=== PATIENT | male | born 1975 | race Caucasian/White ===

== ENCOUNTER 2016-05-10 09:54 | Emergency (ER) | payer OTHER ==
[~2016-05-10] VITALS: Wt 75.0 kg
[~2016-05-10 09:54] MED LIST: HYDR-762 PO; IBUP-1542 PO; LEVE100018 PO; LEVE10006 PO; LEVE500T34 PO
[2016-05-10] MEDS ORDERED: LEVE500S9 PO (10:17)
--- NOTE | 2016-05-10 10:52 | ERD ---
ER Documentation Chief Complaint Date/Time DATE: 05/10/16 TIME: 10:49 Chief Complaint MED REFILL FOR KEPPRA HPI This is a 40-year-old male that presents to the ER requesting a refill for his Keppra. He states that he developed seizure disorder, he does not know why he has been getting seizures. Patient has been getting extensive testing however they have not secured a diagnosis. Patient's last seizure was 8-9 months ago. Patient states that his medication controlled his seizures well. He denies any fevers or chills. He denies any loss of consciousness. He denies any chest pain or shortness of breath. Patient has an appointment with his doctor on June 07, 2016, for follow up regarding his seizures. ROS 12 point review of systems was done, all negative except per HPI. Medications Home Meds Active Scripts Levetiracetam* (Keppra*) 500 Mg/5 Ml Solution, 500 MG PO BID for 30 Days, BOTTLE 1 Refill Prov:GREGORIA RITCHIE 05/10/16 Levetiracetam* (Keppra XR*) 500 Mg Tab.sr.24h, 500 MG PO BID for 30 Days, TAB Prov:GREGORIA RITCHIE 04/12/16 Levetiracetam* (Levetiracetam*) 1,000 Mg Tablet, 1000 MG PO BID, #60 TAB Prov:URSULA LIN DO 01/02/16 Levetiracetam* (Keppra*) 1,000 Mg Tablet, 1000 MG PO BID for 30 Days, TAB Prov:DANIEL METZ MD 10/24/15 Ibuprofen* (Motrin*) 600 Mg Tab, 600 MG PO Q6, #10 TAB Prov:DANIEL METZ MD 10/24/15 Hydrocodone Bit-Acetaminophen* ([place]*) 10-325 Mg Tablet, 1 TAB PO Q6 Y for PAIN , #10 TAB Prov:DANIEL METZ MD 10/24/15 Allergies Allergies: Coded Allergies: No Known Allergy (Unverified , 10/24/15) PMhx/Soc Medical and Surgical Hx: pt denies Surgical Hx History of Surgery: No Anesthesia Reaction: No Hx Neurological Disorder: Yes (SEIZURE) Hx Respiratory Disorders: No Hx Cardiac Disorders: No Hx Psychiatric Problems: No Hx Miscellaneous Medical Probl: No Hx Alcohol Use: Yes (socially) Hx Substance Use: Yes (MARIJUANA) Hx Tobacco Use: No Smoking Status: Never smoker Physical Exam Vitals Vital Signs Date Time Temp Pulse Resp B/P Pulse Ox O2 Delivery O2 Flow Rate FiO2 05/10/16 09:58 98.1 95 17 143/98 99 Physical Exam GENERAL: The patient is well developed and appropriate for usual state of health , in no apparent distress. HEENT: Atraumatic. no tongue bruising CHEST: Clear to auscultation bilaterally. There are no rales, wheezes or rhonchi. HEART: Regular rate and rhythm. No murmurs, clicks, rubs or gallops. EXTREMITIES: Full range of motion. Grossly neurovascularly intact. NEURO: Alert and oriented. Cranial nerves II through XII are intact. Motor strength in all 4 extremities with 5/5 strength. Sensation grossly intact. Normal speech and gait. SKIN: The skin is warm and dry. Procedures/MDM This is a 40-year-old male presents to the ER for medication refill. At this time patient is stable his vital signs are normal. Patient will be sent home with this Breath. He is to follow-up with his primary care doctor within 1-2 days return to ER sooner if symptoms worsen. My medical decision making was shared with the patient he understands and agrees with plan. Departure Diagnosis: Primary Impression: Encounter for medication refill Condition: Stable Patient Instructions: Taking Medicine Safely Additional Instructions: Call your primary care doctor TOMORROW for an appointment during the next 1-2 days.See the doctor sooner or return here if your condition worsens before your appointment time. GREGORIA RITCHIE May 10, 2016 10:52
== END 2016-05-10 11:15 | disposition home or self-care (01) ==
LOC: FTE 09:54
DX: Z76.0 Encounter for issue of repeat prescription (principal)
CPT/HCPCS: 99281

== ENCOUNTER 2016-06-05 11:46 | Emergency (ER) | payer OTHER ==
[~2016-06-05] VITALS: Wt 72.5 kg
[~2016-06-05 11:46] MED LIST changes: +LEVE500S9 PO
[2016-06-05] MEDS ORDERED: LEVE-5 PO (12:31)
--- NOTE | 2016-06-05 12:34 | ERD ---
ER Documentation Chief Complaint Date/Time DATE: 06/05/16 TIME: 12:32 Chief Complaint need medication refill for seizure meds. no seizure. no pain HPI 41-year-old male with history of seizure disorder comes to the emergency department for medication refill for Keppra which he takes 500 mg twice daily. Patient states he has had a seizure disorder for several years now his last seizure was over a year ago. His primary care physician is able to see him in 2 days which is on Tuesday, this is a new PCP and he understands that he needs to see a neurologist. He denies coronary, recent seizures, head injury. He has had a CT scan had previously not has been unremarkable. ROS All systems reviewed and are negative except as per history of present illness. Medications Home Meds Active Scripts Levetiracetam* (Keppra*) 500 Mg Tablet, 500 MG PO BID, #60 TAB Prov:MARTHA LOVELACE PA-C 06/05/16 Levetiracetam* (Keppra*) 500 Mg/5 Ml Solution, 500 MG PO BID for 30 Days, BOTTLE 1 Refill Prov:GREGORIA RITCHIE 05/10/16 Levetiracetam* (Keppra XR*) 500 Mg Tab.sr.24h, 500 MG PO BID for 30 Days, TAB Prov:GREGORIA RITCHIE 04/12/16 Levetiracetam* (Levetiracetam*) 1,000 Mg Tablet, 1000 MG PO BID, #60 TAB Prov:URSULA LIN DO 01/02/16 Levetiracetam* (Keppra*) 1,000 Mg Tablet, 1000 MG PO BID for 30 Days, TAB Prov:DANIEL METZ MD 10/24/15 Ibuprofen* (Motrin*) 600 Mg Tab, 600 MG PO Q6, #10 TAB Prov:DANIEL METZ MD 10/24/15 Hydrocodone Bit-Acetaminophen* ([place]*) 10-325 Mg Tablet, 1 TAB PO Q6 Y for PAIN , #10 TAB Prov:DANIEL METZ MD 10/24/15 Allergies Allergies: Coded Allergies: No Known Allergy (Unverified , 10/24/15) PMhx/Soc History of Surgery: No Anesthesia Reaction: No Hx Neurological Disorder: Yes (SEIZURE) Hx Respiratory Disorders: No Hx Cardiac Disorders: No Hx Psychiatric Problems: No Hx Miscellaneous Medical Probl: No Hx Alcohol Use: Yes (socially) Hx Substance Use: Yes (MARIJUANA) Hx Tobacco Use: No Physical Exam Vitals Vital Signs Date Time Temp Pulse Resp B/P Pulse Ox O2 Delivery O2 Flow Rate FiO2 06/05/16 11:50 98.8 102 22 132/87 97 Physical Exam General: Well-developed, well-nourished. The patient appears in no acute distress. HEENT: Head is normocephalic, atraumatic. No scleral icterus. Pupils are equal , round, and reactive. Oral mucous membranes are moist. No pharyngeal erythema. Neck: Supple. Nontender. Lungs: Clear to auscultation. Normal air movement. Heart: Regular rate and rhythm. S1 and S2 are normal. No murmurs, gallops, or rubs. Abdomen: Soft, nontender, nondistended. Bowel sounds are normoactive. Extremities: No clubbing or cyanosis. Normal pulses. Moving extremities x 4. No weakness. Neurologic: Alert and oriented 3. No focal deficits. Skin: Normal turgor. No rash or lesions. Procedures/MDM 40-year-old male will be given a medication refill for Keppra, with history of seizure disorder. No signs of altered mental status or history of recent seizures. He understands he needs to get a referral to see a neurologist. He understands that he needs to see one within the next couple of weeks. Departure Diagnosis: Primary Impression: Encounter for medication refill Additional Impression: Seizure Condition: Good Patient Instructions: Seizures and Epilepsy Referrals: ANNA MARIE VOGT MD Additional Instructions: NEUROLOGY SPECIALIST: YOU HAVE A MEDICAL CONDITION WHICH REQUIRES YOU TO SEE A SPECIALIST WITHIN THE NEXT 2 weeks. PLEASE FOLLOW UP WITH YOUR PRIMARY PHYSICIAN FOR REFFERAL.IF YOU DO NOT HAVE A PRIMARY CARE PHYSICIAN AND/OR YOU CAN NOT AFFORD TO SEE A PHYSICIAN THE FOLLOWING RESOURCES HAVE BEEN SUPPLIED TO YOU. IT IS YOUR RESPONSIBILITY TO BE SEEN BY THE SPECIALIST MARTHA LOVELACE PA-C Jun 05, 2016 12:34
== END 2016-06-05 12:40 | disposition home or self-care (01) ==
LOC: FTE 11:46
DX: Z76.0 Encounter for issue of repeat prescription (principal); G40.909 Epilepsy, unspecified, not intractable, without status epilepticus
CPT/HCPCS: 99281

== ENCOUNTER 2016-07-06 09:30 | Emergency (ER) | payer OTHER ==
[~2016-07-06] VITALS: Ht 177.8 cm; Wt 74.5 kg
[~2016-07-06 09:30] MED LIST changes: +LEVE-5 PO
[2016-07-06 09:36] VITALS: Ht 177.8 cm; Wt 74.5 kg
[2016-07-06] MEDS ORDERED: LEVE500S9 PO (09:54)
--- NOTE | 2016-07-06 13:06 | ERD ---
ER Documentation Chief Complaint Date/Time DATE: 07/06/16 TIME: 13:05 Chief Complaint keppra refill (keppra 500mg PO daily) HPI Patient is a 41-year-old male with seizures who presents for a prescription. The patient said that he needs a prescription for his Keppra 500 mg twice a day. The patient has had previous visits to the ER for similar type complaints. He has no complaints other than he feels urinary hesitancy at this time. Upon review of old medical records this is the patient's sixth visit to the ER since 2016. He does not currently have a primary doctor. ROS All systems reviewed and are negative except as per history of present illness. Medications Home Meds Active Scripts Levetiracetam* (Keppra*) 500 Mg/5 Ml Solution, 500 MG PO BID, #60 BOTTLE Prov:IMANI DE LEON MD 07/06/16 Levetiracetam* (Keppra*) 500 Mg Tablet, 500 MG PO BID, #60 TAB Prov:MRATHA LOVELACE PA-C 06/05/16 Levetiracetam* (Keppra*) 500 Mg/5 Ml Solution, 500 MG PO BID for 30 Days, BOTTLE 1 Refill Prov:GREGORIA RITCHIE 05/10/16 Levetiracetam* (Keppra XR*) 500 Mg Tab.sr.24h, 500 MG PO BID for 30 Days, TAB Prov:GREGORIA RITCHIE 04/12/16 Levetiracetam* (Levetiracetam*) 1,000 Mg Tablet, 1000 MG PO BID, #60 TAB Prov:URSULA LIN DO 01/02/16 Levetiracetam* (Keppra*) 1,000 Mg Tablet, 1000 MG PO BID for 30 Days, TAB Prov:DANIEL METZ MD 10/24/15 Ibuprofen* (Motrin*) 600 Mg Tab, 600 MG PO Q6, #10 TAB Prov:DANIEL METZ MD 10/24/15 Hydrocodone Bit-Acetaminophen* ([place]*) 10-325 Mg Tablet, 1 TAB PO Q6 Y for PAIN , #10 TAB Prov:DANIEL METZ MD 10/24/15 Allergies Allergies: Coded Allergies: No Known Allergy (Unverified , 10/24/15) PMhx/Soc History of Surgery: No Anesthesia Reaction: No Hx Neurological Disorder: Yes (SEIZURE) Hx Respiratory Disorders: No Hx Cardiac Disorders: No Hx Psychiatric Problems: No Hx Miscellaneous Medical Probl: No Hx Alcohol Use: Yes (socially) Hx Substance Use: Yes (MARIJUANA) Hx Tobacco Use: No FmHx Family History: diabetes Physical Exam Vitals Vital Signs Date Time Temp Pulse Resp B/P Pulse Ox O2 Delivery O2 Flow Rate FiO2 07/06/16 09:36 97.1 113 18 155/94 95 Physical Exam Const: No acute distress Head: Atraumatic Eyes: Normal Conjunctiva ENT: Normal External Ears, Nose and Mouth. Neck: Full range of motion..~ No meningismus. Resp: Clear to auscultation bilaterally Cardio: Regular rate and rhythm, no murmurs Abd: Soft, non tender, non distended. Normal bowel sounds Skin: No petechiae or rashes Back: No midline or flank tenderness Ext: No cyanosis, or edema Neur: Awake and alert Psych: Normal Mood and Affect Procedures/MDM Patient is a 41-year-old male with seizures who presents for a refill of seizure medications. I will give him a prescription for Keppra 500 mg p.o. twice daily. The patient will need to follow-up with a primary doctor and I will give him information for the local clinics. He can return for any worsening symptoms. I believe outpatient management is appropriate. Departure Diagnosis: Primary Impression: Encounter for medication refill Condition: Fair Patient Instructions: Seizure, Recurrent [Adult] Referrals: [facility] YOU HAVE RECEIVED A MEDICAL SCREENING EXAM AND THE RESULTS INDICATE THAT YOU DO NOT HAVE A CONDITION THAT REQUIRES URGENT TREATMENT IN THE EMERGENCY DEPARTMENT. FURTHER EVALUATION AND TREATMENT OF YOUR CONDITION CAN WAIT UNTIL YOU ARE SEEN IN YOUR DOCTORS OFFICE WITHIN THE NEXT 1-2 DAYS. IT IS YOUR RESPONSIBILITY TO MAKE AN APPOINTMENT FOR FOLOW-UP CARE. IF YOU HAVE A PRIMARY DOCTOR --you should call your primary doctor and schedule an appointment IF YOU DO NOT HAVE A PRIMARY DOCTOR YOU CAN CALL OUR PHYSICIAN REFERRAL HOTLINE AT IF YOU CAN NOT AFFORD TO SEE A PHYSICIAN YOU CAN CHOSE FROM THE FOLLOWING [facility] [address] [facility]. [facility] [address] [facility]. [facility] [address] [facility]. [facility] [address] [facility] [address] [facility] [facility] [address] Additional Instructions: Call your primary care doctor TOMORROW for an appointment during the next 1-2 days.See the doctor sooner or return here if your condition worsens before your appointment time. IMANI DE LEON MD Jul 06, 2016 13:06
== END 2016-07-06 10:05 | disposition home or self-care (01) ==
LOC: E/R 09:30
DX: Z76.0 Encounter for issue of repeat prescription (principal)
CPT/HCPCS: 99281

== ENCOUNTER 2016-08-09 08:32 | Emergency (ER) | payer OTHER ==
[~2016-08-09] VITALS: Ht 175.3 cm; Wt 78.9 kg
[~2016-08-09 08:32] MED LIST changes: +LEVE500S8 PO; -LEVE500S9 PO
[2016-08-09 08:35] VITALS: Ht 175.3 cm; Wt 78.9 kg
[2016-08-09] MEDS ORDERED: LEVE500T8 PO (09:04)
--- NOTE | 2016-08-09 11:55 | ERD ---
ER Documentation Chief Complaint Date/Time DATE: 08/09/16 TIME: 11:53 Chief Complaint REFILL OF SEIZURE MEDS HPI This patient is a 41-year-old male with history of seizure disorder presenting to the emergency department for refill of his seizure medication. The patient takes Levetiracetam 500 mg p.o. twice daily. I will prescribe the medication exactly as prescribed as a previous provider, and how it was originally prescribed. The patient states he just ran out of his medication this morning and he has not missed a dose. The patient denies any recent seizures. The patient's last seizure was 2 years ago before he started taking his medication. The patient denies any side effects from the medication. The patient currently denies shortness of breath, chest pain, dizziness, headache, or other symptoms. ROS All systems reviewed and are negative except as per history of present illness. Medications Home Meds Active Scripts Levetiracetam* (Levetiracetam*) 500 Mg Tablet, 500 MG PO BID, #60 TAB Prov:JAMARI HUTTON PA-C 08/09/16 Levetiracetam* (Keppra*) 500 Mg/5 Ml Solution, 500 MG PO BID, #60 BOTTLE Prov:IMANI DE LEON MD 07/06/16 Levetiracetam* (Keppra*) 500 Mg Tablet, 500 MG PO BID, #60 TAB Prov:MARTHA LOVELACE PA-C 06/05/16 Levetiracetam* (Keppra*) 500 Mg/5 Ml Solution, 500 MG PO BID for 30 Days, BOTTLE 1 Refill Prov:GREGORIA RITCHIE 05/10/16 Levetiracetam* (Keppra XR*) 500 Mg Tab.sr.24h, 500 MG PO BID for 30 Days, TAB Prov:GREGORIA RITCHIE 04/12/16 Levetiracetam* (Levetiracetam*) 1,000 Mg Tablet, 1000 MG PO BID, #60 TAB Prov:URSULA LIN DO 01/02/16 Levetiracetam* (Keppra*) 1,000 Mg Tablet, 1000 MG PO BID for 30 Days, TAB Prov:DANIEL METZ MD 10/24/15 Ibuprofen* (Motrin*) 600 Mg Tab, 600 MG PO Q6, #10 TAB Prov:DANIEL METZ MD 10/24/15 Hydrocodone Bit-Acetaminophen* ([place]*) 10-325 Mg Tablet, 1 TAB PO Q6 Y for PAIN , #10 TAB Prov:DANIEL METZ MD 10/24/15 Allergies Allergies: Coded Allergies: No Known Allergy (Unverified , 08/09/16) PMhx/Soc Medical and Surgical Hx: pt denies Medical Hx, pt denies Surgical Hx History of Surgery: No Anesthesia Reaction: No Hx Neurological Disorder: Yes (SEIZURE) Hx Respiratory Disorders: No Hx Cardiac Disorders: No Hx Psychiatric Problems: No Hx Miscellaneous Medical Probl: No Hx Alcohol Use: Yes (socially) Hx Substance Use: Yes (MARIJUANA) Hx Tobacco Use: No Smoking Status: Never smoker FmHx Noncontributory for chief complaint Physical Exam Vitals Vital Signs Date Time Temp Pulse Resp B/P Pulse Ox O2 Delivery O2 Flow Rate FiO2 08/09/16 08:35 98.1 99 18 160/90 99 Physical Exam Const: The patient is resting comfortably in no acute distress. Head: Atraumatic Eyes: Normal Conjunctiva ENT: Normal External Ears, Nose and Mouth. Neck: Full range of motion..~ No meningismus. Resp: Clear to auscultation bilaterally Cardio: Regular rate and rhythm, no murmurs Abd: Soft, non tender, non distended. Normal bowel sounds Skin: No petechiae or rashes Back: No midline or flank tenderness Ext: No cyanosis, or edema Neur: Awake and alert Psych: Normal Mood and Affect Procedures/MDM 41-year-old male presents secondary to complaints of needing his seizure medication refill. On physical examination the patient has no neurological deficits. The patient states his last seizure was over 2 years ago before he started taking seizure medication. The patient denies any negative side effects from the medication. I will prescribe the medication exactly as prescribed by the previous provider. The patient was advised to follow-up with a primary care physician. The patient was given strict ER return precautions in case of seizure or other concerning symptoms occur. Departure Diagnosis: Primary Impression: Encounter for medication refill Condition: Fair Patient Instructions: Taking Medicine Safely Referrals: COMMUNITY CLINICS YOU HAVE RECEIVED A MEDICAL SCREENING EXAM AND THE RESULTS INDICATE THAT YOU DO NOT HAVE A CONDITION THAT REQUIRES URGENT TREATMENT IN THE EMERGENCY DEPARTMENT. FURTHER EVALUATION AND TREATMENT OF YOUR CONDITION CAN WAIT UNTIL YOU ARE SEEN IN YOUR DOCTORS OFFICE WITHIN THE NEXT 1-2 DAYS. IT IS YOUR RESPONSIBILITY TO MAKE AN APPOINTMENT FOR FOLOW-UP CARE. IF YOU HAVE A PRIMARY DOCTOR --you should call your primary doctor and schedule an appointment IF YOU DO NOT HAVE A PRIMARY DOCTOR YOU CAN CALL OUR PHYSICIAN REFERRAL HOTLINE AT IF YOU CAN NOT AFFORD TO SEE A PHYSICIAN YOU CAN CHOSE FROM THE FOLLOWING [facility] [address] [facility] [address] [facility] [address] [facility] [address] [facility] [address] [facility]. [facility]. [address] Additional Instructions: Please follow-up with a primary care physician as soon as possible. Return to the emergency department immediately should you have any new or worsening symptoms, uncontrolled fevers, or other unexplained symptoms. Take all medications as directed. JAMARI HUTTON PA-C Aug 09, 2016 11:55
== END 2016-08-09 09:20 | disposition home or self-care (01) ==
LOC: FTE 08:32
DX: Z76.0 Encounter for issue of repeat prescription (principal)
CPT/HCPCS: 99281

== ENCOUNTER 2016-09-11 06:42 | Emergency (ER) | payer OTHER ==
[~2016-09-11] VITALS: Ht 175.3 cm; Wt 70.0 kg
[~2016-09-11 06:42] MED LIST changes: -LEVE500S8 PO; +LEVE500S9 PO; +LEVE500T8 PO
[2016-09-11 06:43] VITALS: Ht 175.3 cm; Wt 70.0 kg
[2016-09-11] MEDS ORDERED: LEVE-5 PO (06:47)
--- NOTE | 2016-09-11 07:58 | ERD ---
ER Documentation Chief Complaint Date/Time DATE: 09/11/16 TIME: 07:54 Chief Complaint medication refill ( levetiracetam) HPI This is a 41-year-old male with a history of seizure disorder presenting to the emergency department asking for a minute goal refill for his Keppra. Patient states that he is trying to get an appointment to see a neurologist however they rescheduled him. Patient denies any seizures, he denies any chest pain shortness of breath. He has no other complaints ROS All systems reviewed and are negative except as per history of present illness. Medications Home Meds Active Scripts Levetiracetam* (Keppra*) 500 Mg Tablet, 500 MG PO BID, #60 TAB Prov:JUANJO CARR PA-C 09/11/16 Levetiracetam* (Levetiracetam*) 500 Mg Tablet, 500 MG PO BID, #60 TAB Prov:JAMARI HUTTON PA-C 08/09/16 Levetiracetam* (Keppra*) 500 Mg/5 Ml Solution, 500 MG PO BID, #60 BOTTLE Prov:IMANI DE LEON MD 07/06/16 Levetiracetam* (Keppra*) 500 Mg Tablet, 500 MG PO BID, #60 TAB Prov:MARTHA LOVELACE PA-C 06/05/16 Levetiracetam* (Keppra*) 500 Mg/5 Ml Solution, 500 MG PO BID for 30 Days, BOTTLE 1 Refill Prov:GREGORIA RITCHIE 05/10/16 Levetiracetam* (Keppra XR*) 500 Mg Tab.sr.24h, 500 MG PO BID for 30 Days, TAB Prov:GREGORIA RITCHIE 04/12/16 Levetiracetam* (Levetiracetam*) 1,000 Mg Tablet, 1000 MG PO BID, #60 TAB Prov:URSULA LIN DO 01/02/16 Levetiracetam* (Keppra*) 1,000 Mg Tablet, 1000 MG PO BID for 30 Days, TAB Prov:DANIEL METZ MD 10/24/15 Ibuprofen* (Motrin*) 600 Mg Tab, 600 MG PO Q6, #10 TAB Prov:DANIEL METZ MD 10/24/15 Hydrocodone Bit-Acetaminophen* ([place]*) 10-325 Mg Tablet, 1 TAB PO Q6 Y for PAIN , #10 TAB Prov:DANIEL METZ MD 10/24/15 Allergies Allergies: Coded Allergies: No Known Allergy (Unverified , 08/09/16) PMhx/Soc History of Surgery: No Anesthesia Reaction: No Hx Neurological Disorder: Yes (SEIZURE) Hx Respiratory Disorders: No Hx Cardiac Disorders: No Hx Psychiatric Problems: No Hx Miscellaneous Medical Probl: No Hx Alcohol Use: Yes (socially) Hx Substance Use: Yes (MARIJUANA) Hx Tobacco Use: No Smoking Status: Current every day smoker Physical Exam Vitals Vital Signs Date Time Temp Pulse Resp B/P Pulse Ox O2 Delivery O2 Flow Rate FiO2 09/11/16 06:43 97.8 99 16 142/86 94 Physical Exam Const: [] Head: Atraumatic Eyes: Normal Conjunctiva ENT: Normal External Ears, Nose and Mouth. Neck: Full range of motion..~ No meningismus. Resp: Clear to auscultation bilaterally Cardio: Regular rate and rhythm, no murmurs Abd: Soft, non tender, non distended. Normal bowel sounds Skin: No petechiae or rashes Back: No midline or flank tenderness Ext: No cyanosis, or edema Neur: Awake and alert Psych: Normal Mood and Affect Procedures/MDM This is a 41-year-old male presenting to the emergency department with a history of seizure disorder asking for a refill on his Keppra, patient is trying to get an appointment to see his neurologist however they rescheduled him. Patient denies any seizure activity. He appears well he has stable vital signs. I have refilled a prescription for Keppra 500 mg twice a day for the next 30 days, I discussed with him that he will need to see a neurologist within the next couple days to get a follow-up. Discussed that we will not be able to continue to refill his medications in the future. Patient understands and agrees with this plan. He stable for discharge for home Departure Diagnosis: Primary Impression: Seizure Additional Impression: Encounter for medication refill Condition: Stable Patient Instructions: Taking Medicine Safely Referrals: NO PRIMARY,CARE PHYSICIAN (PCP) YOUR DOCTOR Additional Instructions: FOLLOW UP WITH YOUR PRIMARY CARE PHYSICIAN TOMORROW.Return to this facility if you are not improving as expected. Return to this facility if you are not improving as expected. Take all medicines as directed. JUANJO CARR PA-C September 11, 2016 07:58
== END 2016-09-11 07:06 | disposition home or self-care (01) ==
LOC: FTE 06:42
DX: G40.909 Epilepsy, unspecified, not intractable, without status epilepticus (principal); F17.210 Nicotine dependence, cigarettes, uncomplicated
CPT/HCPCS: 99281

== ENCOUNTER 2016-10-11 08:09 | Emergency (ER) | payer OTHER ==
[~2016-10-11] VITALS: Ht 175.3 cm; Wt 69.0 kg
[2016-10-11 08:13] VITALS: Ht 175.3 cm; Wt 69.0 kg
[2016-10-11] MEDS ORDERED: LEVE500T8 PO (09:23)
--- NOTE | 2016-10-11 10:32 | ERD ---
ER Documentation Chief Complaint Date/Time DATE: 10/11/16 TIME: 10:27 Chief Complaint REQUESTING MED REFILL FOR SEIZURE MEDS - NO OTHER COMPLAINTS HPI 41-year-old male patient with a past medical history of seizures presents to the ED requesting for a medication refill for Keppra. Patient reports that his last seizure was about 1 year ago. Reports that he is had difficulty following up with a family physician as well as a neurologist. Denies any chest pain, shortness of breath, seizures, dizziness, headache, eye pain, dyspnea on exertion, wheezing, fever, abdominal pain, nausea, vomiting. Reports that he takes Keppra 500 mg twice daily. States that he will be going to [place] and needs 1 month refill and won't be able to get a refill. ROS All systems reviewed and are negative except as per history of present illness. Medications Home Meds Active Scripts Levetiracetam* (Levetiracetam*) 500 Mg Tablet, 500 MG PO BID, #60 TAB Prov:JULIANNA RAMOSC 10/11/16 Levetiracetam* (Keppra*) 500 Mg Tablet, 500 MG PO BID, #60 TAB Prov:JUANJO CARRC 09/11/16 Levetiracetam* (Levetiracetam*) 500 Mg Tablet, 500 MG PO BID, #60 TAB Prov:JAMARI HUTTONC 08/09/16 Levetiracetam* (Keppra*) 500 Mg/5 Ml Solution, 500 MG PO BID, #60 BOTTLE Prov:IMANI DE LEON MD 07/06/16 Levetiracetam* (Keppra*) 500 Mg Tablet, 500 MG PO BID, #60 TAB Prov:MARTHA LOVELACEC 06/05/16 Levetiracetam* (Keppra*) 500 Mg/5 Ml Solution, 500 MG PO BID for 30 Days, BOTTLE 1 Refill Prov:GREGORIA RITCHIE 05/10/16 Levetiracetam* (Keppra XR*) 500 Mg Tab.sr.24h, 500 MG PO BID for 30 Days, TAB Prov:GREGORIA RITCHIE 04/12/16 Levetiracetam* (Levetiracetam*) 1,000 Mg Tablet, 1000 MG PO BID, #60 TAB Prov:URSULA LIN DO 01/02/16 Levetiracetam* (Keppra*) 1,000 Mg Tablet, 1000 MG PO BID for 30 Days, TAB Prov:DANIEL METZ MD 10/24/15 Ibuprofen* (Motrin*) 600 Mg Tab, 600 MG PO Q6, #10 TAB Prov:DANIEL METZ MD 10/24/15 Hydrocodone Bit-Acetaminophen* ([place]*) 10-325 Mg Tablet, 1 TAB PO Q6 Y for PAIN , #10 TAB Prov:DANIEL METZ MD 10/24/15 Allergies Allergies: Coded Allergies: No Known Allergy (Unverified , 08/09/16) PMhx/Soc Medical and Surgical Hx: pt denies Surgical Hx History of Surgery: No Anesthesia Reaction: No Hx Neurological Disorder: Yes (SEIZURE) Hx Respiratory Disorders: No Hx Cardiac Disorders: No Hx Psychiatric Problems: No Hx Miscellaneous Medical Probl: No Hx Alcohol Use: Yes (socially) Hx Substance Use: Yes (MARIJUANA) Hx Tobacco Use: No Smoking Status: Never smoker Physical Exam Vitals Vital Signs Date Time Temp Pulse Resp B/P Pulse Ox O2 Delivery O2 Flow Rate FiO2 10/11/16 08:13 98.3 104 16 155/99 95 Physical Exam Const: [id number], well-nourished. In no acute distress. Head: Atraumatic, normocephalic Eyes: Normal Conjunctiva without injection. No purulent discharge. PERRLA. EOMI ENT: Normal external ear. Ear canal without erythema. Tympanic membrane pearly burch without effusion or bulging. Nasal canal clear with normal turbinates. Moist oropharynx without tonsillar exudates. Non-erythematous pharynx. Uvula midline. No drooling. No trismus. Neck: No cervical midline tenderness. Full range of motion. No meningismus. No cervical lymphadenopathy. No JVD. Resp: Clear to auscultation bilaterally. No wheezing, rhonchi, rales, or crackles. No accessory muscle use. No retractions. Cardio: Regular rate and rhythm. No murmurs, rubs or gallops. Skin: Normal skin turgor. No petechiae or rashes Ext: No cyanosis, or edema. Distal pulses intact bilaterally. Neur: Awake and alert. Normal gait. Normal coordination. Cranial Nerves II- VII intact. Normal finger to nose. Muscle strength 5/5. Sensation intact. Psych: Normal Mood and Affect Procedures/MDM 41-year-old male patient with no significant past medical history presents to the ED for a medication refill for his seizure medications. Patient is afebrile and nontoxic-appearing. Patient's blood pressure was noted to be 155/ 99. Patient's blood pressure was elevated (>120/80) but appears stable without evidence of hypertension emergency or urgency. The patient was counseled about the risks of hypertension and urged to pursue outpatient monitoring and therapy within a week with their primary care physician. Patient is neurologically intact. I will refill patient's medication for Keppra but strictly instructed him to follow-up with a primary care physician for further evaluation and treatment to manage his seizure history. Patient reports no seizures within 1 year. Reports that the Keppra is working to avoid any seizures. Low suspicion for acute myocardial infarction, pneumothorax, pneumonia, cardiac tamponade, pulmonary embolism, pleural effusion, AAA, aortic dissection, Boerhaave's syndrome, cardiac dysrhythmias,meningitis, intracranial bleed, seizure, stroke, TIA or other emergent conditions. Discharge medications: Srinivasra Follow up with primary care physician in 1-2 days. Instructed patient to return to the ED sooner for any worsening symptoms. Patient's questions were answered. Patient understood and agreed with discharge plan. Patient discharged stable. Departure Diagnosis: Primary Impression: Encounter for medication refill Condition: Stable Patient Instructions: Taking Medicine Safely, First Aid: Seizures, Seizures and Epilepsy Referrals: [facility] YOU HAVE RECEIVED A MEDICAL SCREENING EXAM AND THE RESULTS INDICATE THAT YOU DO NOT HAVE A CONDITION THAT REQUIRES URGENT TREATMENT IN THE EMERGENCY DEPARTMENT. FURTHER EVALUATION AND TREATMENT OF YOUR CONDITION CAN WAIT UNTIL YOU ARE SEEN IN YOUR DOCTORS OFFICE WITHIN THE NEXT 1-2 DAYS. IT IS YOUR RESPONSIBILITY TO MAKE AN APPOINTMENT FOR FOLOW-UP CARE. IF YOU HAVE A PRIMARY DOCTOR --you should call your primary doctor and schedule an appointment IF YOU DO NOT HAVE A PRIMARY DOCTOR YOU CAN CALL OUR PHYSICIAN REFERRAL HOTLINE AT IF YOU CAN NOT AFFORD TO SEE A PHYSICIAN YOU CAN CHOSE FROM THE FOLLOWING [facility] [address] [facility] [address] [facility] [address] [facility] [address] [facility] [address] [facility]. [facility] [address] [facility]. [facility] YOU HAVE RECEIVED A MEDICAL SCREENING EXAM AND THE RESULTS INDICATE THAT YOU DO NOT HAVE A CONDITION THAT REQUIRES URGENT TREATMENT IN THE EMERGENCY DEPARTMENT. FURTHER EVALUATION AND TREATMENT OF YOUR CONDITION CAN WAIT UNTIL YOU ARE SEEN IN YOUR DOCTORS OFFICE WITHIN THE NEXT 1-2 DAYS. IT IS YOUR RESPONSIBILITY TO MAKE AN APPOINTMENT FOR FOLOW-UP CARE. IF YOU HAVE A PRIMARY DOCTOR --you should call your primary doctor and schedule and appointment IF YOU DO NOT HAVE A PRIMARY DOCTOR YOU CAN CALL OUR PHYSICIAN REFERRAL HOTLINE AT . IF YOU CAN NOT AFFORD TO SEE A PHYSICIAN YOU CAN CHOSE FROM THE FOLLOWING [facility] INSTITUTIONS: [facility] [address] [place] [address] [facility] [address] [place] [address] [facility] [address] [place] [address] [facility]SPECIALTIES Additional Instructions: Call your primary care doctor TOMORROW for an appointment during the next 1-2 days.See the doctor sooner or return here if your condition worsens before your appointment time. JULIANNA RAMOS PA-C Oct 11, 2016 10:32
== END 2016-10-11 09:30 | disposition home or self-care (01) ==
LOC: FTE 08:09
DX: Z76.0 Encounter for issue of repeat prescription (principal)
CPT/HCPCS: 99281